=== PATIENT | male | born 1965 | race African-American/Black ===

== ENCOUNTER 2022-11-28 18:04 | Inpatient (IN) ==
[2022-11-28] MEDS ORDERED: ONDANSETRON 4 MG/2 ML VIAL IV PRN (23:15)
[2022-11-28] MEDS ORDERED: ALBUTEROL 2.5 MG/3 ML NEB RESP TX PRN (23:15)
[2022-11-28] MEDS ORDERED: hydrALAZINE 20 MG/1 ML VIAL IV PRN (23:15)
[2022-11-28] MEDS ORDERED: DOCUSATE SODIUM 100 MG CAPSULE PO PRN (23:15)
[2022-11-28] MEDS: SACUBITRIL/VALSARTAN 49-51 MG TABLET PO SCH (23:34)
[2022-11-28] MEDS: ACETAMINOPHEN 325 MG TABLET PO PRN (23:34)
[2022-11-28] MEDS: HEPARIN 5,000 UNIT/1 ML VIAL SUBCUT SCH (23:34)
[2022-11-28] MEDS: carvediloL 25 MG TABLET PO SCH (23:35)
[2022-11-28 23:59] LABS: INR 1.1; PT Patient Result 11.9 SECS (10.1-12.1)
[2022-11-29 00:09] LABS: Albumin 2.7 G/DL (3.4-5.0); Bilirubin,Total 0.5 MG/DL (0.20-1.00); Calcium 9.2 MG/DL (8.5-10.1); Osmolality,Calculated 319.7 MOS/KG (273-304); Potassium 5.6 MMOL/L (3.5-5.1)
[2022-11-29] MEDS ORDERED: NICOTINE 14 MG/24 HR PATCH TRANSDERM PRN (00:11)
[2022-11-29 00:34] LABS: Basophils % 0.3 % (0.0-0.8); Hematocrit 30.7 VOL% (42.0-52.0); Hemoglobin 9.3 GM/DL (14.0-18.0); Immature Granulocytes % 0.5 %; Immature Granulocytes Absolute 0.05 #; Lymphocytes # 0.6 10*3/uL (1.4-4.0); Lymphocytes % 6.2 % (21.2-54.2); Mean Corpuscular HGB Conc 30.3 GM/DL (32-36); Mean Corpuscular Volume 77.3 FL (87-102); Mean Platelet Volume 10.9 FL (9.6-12.0); Monocytes # 0.8 10*3/uL (0.11-0.8); Platelet Count 169 T/CUMM (130-400); Red Blood Count 3.97 MC/CUMM (3.8-5.5); White Blood Count 10.06 T/CUMM (4-12)
[2022-11-29] MEDS: ACETAMINOPHEN 325 MG TABLET PO PRN ×3 (04:54→20:26)
[2022-11-29 05:26] LABS: % Iron Saturation 8.3 % (18-50); Ferritin 507.7 ng/mL (26-388)
[2022-11-29] MEDS: amLODIPine 10 MG TABLET PO SCH (08:47)
[2022-11-29] MEDS: SACUBITRIL/VALSARTAN 49-51 MG TABLET PO SCH ×2 (08:47→20:21)
[2022-11-29] MEDS: carvediloL 25 MG TABLET PO SCH ×2 (08:47→20:21)
[2022-11-29 15:13] LABS: Hepatitis B Core IgM Quant 0.07 Index; Hepatitis B Surface Ag Quant < 0.10 Index; Hepatitis B Surface Ag Result Non-Reactive (NonReactive); Hepatitis C Virus Ab Quant 0.03 Index; Hepatitis C Virus Ab Result Non-Reactive (NonReactive)
[2022-11-29] MEDS: HEPARIN 5,000 UNIT/1 ML VIAL SUBCUT SCH ×2 (16:00→23:27)
[2022-11-29] MEDS ORDERED: METOPROLOL TARTRATE 5 MG/5 ML VIAL IV ONE (17:45)
[2022-11-29 22:08] LABS: Basophils % 0.4 % (0.0-0.8); Eosinophils % 0.1 % (0.00-10.9); Hemoglobin 10.3 GM/DL (14.0-18.0); Immature Granulocytes % 0.6 %; Immature Granulocytes Absolute 0.04 #; Lymphocytes # 0.5 10*3/uL (1.4-4.0); Lymphocytes % 6.5 % (21.2-54.2); Mean Corpuscular HGB Conc 30.3 GM/DL (32-36); Mean Corpuscular Volume 76.7 FL (87-102); Mean Platelet Volume 10.8 FL (9.6-12.0); Monocytes # 0.6 10*3/uL (0.11-0.8); Monocytes % 7.8 % (1.7-12.7); Neutrophils % 84.6 % (38.7-73.9); Platelet Count 194 T/CUMM (130-400); Red Blood Count 4.43 MC/CUMM (3.8-5.5); Red Cell Distribution Width 19.1 % (9.3-17.3); White Blood Count 7.09 T/CUMM (4-12)
[2022-11-29] MEDS ORDERED: LEVOFLOXACIN INJ 750 MG/150 ML PREMIX IV ONE (23:06)
[2022-11-30 04:21] LABS: Basophils # 0.1 10*3/uL (0.0-0.2); Basophils % 0.9 % (0.0-0.8); Eosinophils # 0.1 10*3/uL (0.0-0.87); Eosinophils % 0.7 % (0.00-10.9); Hematocrit 31.6 VOL% (42.0-52.0); Hemoglobin 9.8 GM/DL (14.0-18.0); Immature Granulocytes % 0.4 %; Immature Granulocytes Absolute 0.03 #; Lymphocytes # 0.6 10*3/uL (1.4-4.0); Mean Corpuscular Volume 75.8 FL (87-102); Mean Platelet Volume 10.7 FL (9.6-12.0); Monocytes # 0.8 10*3/uL (0.11-0.8); Monocytes % 11.3 % (1.7-12.7); Neutrophils % 77.7 % (38.7-73.9); Platelet Count 191 T/CUMM (130-400); Red Blood Count 4.17 MC/CUMM (3.8-5.5); Red Cell Distribution Width 18.9 % (9.3-17.3); White Blood Count 6.81 T/CUMM (4-12)
[2022-11-30 04:54] LABS: Albumin 2.5 G/DL (3.4-5.0); Bilirubin,Total 0.5 MG/DL (0.20-1.00); Calcium 9.5 MG/DL (8.5-10.1); Osmolality,Calculated 289.1 MOS/KG (273-304); Potassium 4.3 MMOL/L (3.5-5.1)
[2022-11-30] MEDS: amLODIPine 10 MG TABLET PO SCH ×2 (08:07→11:30)
[2022-11-30] MEDS: SACUBITRIL/VALSARTAN 49-51 MG TABLET PO SCH ×2 (08:07→20:20)
[2022-11-30] MEDS: carvediloL 25 MG TABLET PO SCH ×2 (08:07→20:20)
[2022-11-30] MEDS: HEPARIN 5,000 UNIT/1 ML VIAL SUBCUT SCH ×2 (11:15→23:25)
[2022-11-30 19:25] LABS: Mucus,Urine Occasional /LPF (Occasional); RBC,Urine 2 /HPF (0-4); Squamous Epithelial Cell,Urine Occasional /HPF (0-10)
[2022-11-30 19:26] LABS: Bilirubin,Urine Negative (Negative); Blood, Urine Moderate mg/dL (Negative); Glucose,Urine (UA) Negative (Negative); Ketones,Urine Negative (Negative); Nitrite,Urine Negative (Negative); Protein,Urine >=300 mg/dL (Negative); Urine Appearance Clear (Clear); Urine Color Yellow (Yellow)
[2022-11-30 19:27] LABS: Urine Urobilinogen 0.2 eU/dL (<2.0)
[2022-12-01 06:12] LABS: Calcium 9.6 MG/DL (8.5-10.1); Potassium 4.5 MMOL/L (3.5-5.1)
[2022-12-01 06:26] LABS: Basophils % 0.8 % (0.0-0.8); Eosinophils # 0.3 10*3/uL (0.0-0.87); Eosinophils % 5.1 % (0.00-10.9); Hematocrit 32.1 VOL% (42.0-52.0); Hemoglobin 9.7 GM/DL (14.0-18.0); Immature Granulocytes % 0.6 %; Immature Granulocytes Absolute 0.03 #; Lymphocytes # 0.7 10*3/uL (1.4-4.0); Lymphocytes % 14.7 % (21.2-54.2); Mean Corpuscular HGB Conc 30.2 GM/DL (32-36); Mean Corpuscular Volume 76.8 FL (87-102); Mean Platelet Volume 10.7 FL (9.6-12.0); Monocytes # 0.6 10*3/uL (0.11-0.8); Monocytes % 11.5 % (1.7-12.7); Neutrophils % 67.3 % (38.7-73.9); Platelet Count 218 T/CUMM (130-400); Red Blood Count 4.18 MC/CUMM (3.8-5.5); Red Cell Distribution Width 18.9 % (9.3-17.3); White Blood Count 4.95 T/CUMM (4-12)
[2022-12-01] MEDS: amLODIPine 10 MG TABLET PO SCH ×2 (08:19→08:40)
[2022-12-01] MEDS: SACUBITRIL/VALSARTAN 49-51 MG TABLET PO SCH (08:19)
[2022-12-01] MEDS: carvediloL 25 MG TABLET PO SCH (08:19)
[2022-12-01] MEDS ORDERED: LEVOFLOXACIN 500 MG TABLET PO SCH (10:30)
[2022-12-01] MEDS: HEPARIN 5,000 UNIT/1 ML VIAL SUBCUT SCH (11:28)
[2022-12-01 13:22] VITALS: BP 109/81
[2022-12-01] MEDS ORDERED: LEVOFLOXACIN INJ 500 MG/100 ML PREMIX IV SCH (21:00)
== END 2022-12-01 15:30 | disposition home or self-care (01) | DRG 291 ==
LOC: N.ICU → OBSVTOIN 22:35 → SUATTDRO 22:35
PROVIDERS: ADMIT Family Medicine; ATTEND Family Medicine